=== PATIENT | female | born 1990 | race Caucasian/White ===

== ENCOUNTER 2018-07-28 09:26 | Emergency (ER) | payer OTHER ==
[2018-07-28 09:46] VITALS: BP 118/69; PULSE 96; TEMP 98.7; BMI 20.9
--- NOTE | 2018-07-28 10:14 | PDOC ---
History of Present Illness - General Chief Complaint: Laceration Stated Complaint: LACERATION TO CHIN Time Seen by Provider: 07/28/18 09:36 History Source: Patient Exam Limitations: No Limitations - History of Present Illness Initial Comments: 07/28/18 10:09 Healthy 28-year-old female presents with chin laceration status post trip and fall. Patient awoke from sleep, was walking to the kitchen when she tripped over a stool and fell onto vinyl tiles, striking her chin. No other injury, denies any head injury or neck pain, denies any loss of consciousness or lightheadedness, no cardiopulmonary complaints. Presents specifically for laceration repair. Last tetanus within the past 5 years. Past History - Past Medical History Allergies/Adverse Reactions: Allergies Allergy/AdvReac Type Severity Reaction Status Date / Time No Known Allergies Allergy Unverified 07/28/18 09:29 Home Medications: Ambulatory Orders NK [No Known Home Medication] 07/28/18 COPD: No Other medical history: DENIES - Suicide/Smoking/Psychosocial Hx Smoking History: Current every day smoker Have you smoked in the past 12 months: Yes Number of Cigarettes Smoked Daily: 15 Information on smoking cessation initiated: Yes 'Breaking Loose' booklet given: 07/28/18 Hx Alcohol Use: No Drug/Substance Use Hx: Yes (MARIJUANA) Substance Use Type: Marijuana Review of Systems - Review of Systems Constitutional: No: Chills, Fever HEENTM: No: Recent change in vision Respiratory: No: Shortness of Breath Cardiac (ROS): No: Chest Pain, Lightheadedness, Syncope ABD/GI: No: Nausea, Vomiting Musculoskeletal: No: Joint Pain, Muscle Pain Integumentary: Yes: See HPI Neurological: No: Headache, Weakness, Ataxia, Dizziness All Other Systems: Reviewed and Negative *Physical Exam - Vital Signs Last Vital Signs Temp Pulse Resp BP Pulse Ox 98.7 F 96 H 16 118/69 100 07/28/18 09:29 07/28/18 09:29 07/28/18 09:29 07/28/18 09:29 07/28/18 09:29 - Physical Exam Comments: 07/28/18 10:10 General: Patient is alert and in no acute distress. Speech is clear and appropriate. Head: Atraumatic and nontender. HEENT: Pupils are equal round and reactive to light, extraocular movements are intact. No facial deformity/tenderness, no septal hematoma. The oropharynx is clear, no tongue lac or loose dentition. Neck: The trachea is midline, there is no stridor. There is no midline cervical spine tenderness, full range of motion of neck. Chest: Nontender, no ecchymosis or abrasions. Heart: S1-S2, regular rate and rhythm. No murmurs. Lungs: Clear to auscultation bilaterally. Symmetric chest rise. Abdomen: Soft/nontender/nondistended. Bowel sounds are normal. There is no abdominal or flank ecchymosis. Back/Pelvis: There is no midline spine tenderness or step-off. Pelvis is stable and nontender. Extremities: There is no extremity deformity or joint swelling. No focal bony tenderness throughout. 2+ distal pulses throughout. Neuro: Alert and oriented x3. Cranial nerves II through XII are intact. 5 out of 5 motor strength x4 extremities. [id number] is intact. No pronator drift. Gait is stable. Skin: 4cm horizontal laceration under chin, through dermis but no muscle involvement. no foreign body, no active bleeding. No other abrasions/hematomas. Psych: Affect is appropriate. Medical Decision Making - Medical Decision Making 07/28/18 10:13 28-year-old female with mechanical trip and fall and chin laceration as isolated injury. No evidence of underlying bony injury, no evidence of cardiopulmonary process or syncope. Tetanus is already up-to-date LACERATION REPAIR: performed by MS and directly supervised by me: The skin was prepped with Saline. 2% lidocaine was injected subcutaneously for local anesthesia. Normal saline lavage, high pressure, high volume was performed. 4.0 Nylon, simple interrupted suture x1 was placed, 5.0 nylon x4. Bacitracin and dry sterile dressing were applied. Patient was advised regarding signs and symptoms of infection that would indicate a need to see the doctor immediately, as well as instructions for suture removal. Understands return criteria, agrees with discharge plan *DC/Admit/Observation/Transfer Diagnosis at time of Disposition: Laceration - Discharge Dispostion Disposition: HOME Condition at time of disposition: Stable - Referrals Referrals: [facility] [place] [Provider Group] - Patient Instructions Printed Discharge Instructions: DI for Laceration Repair Additional Instructions: Activity as tolerated. Stay hydrated. Tylenol 1000 mg every 8 hours and/or ibuprofen 600 mg every 8 hours as needed for pain. Maintain current dressing for 48 hours, then bacitracin dressing changes twice daily. Avoid soaking or scrubbing. Follow up with your primary doctor or return to the emergency department in 5-6 days for suture removal. Continue your medications as previously prescribed by your physician. You should follow up with your primary doctor as needed regarding today's emergency department visit. Return to the emergency department sooner for any new or concerning symptoms, particularly redness or swelling, pus or bleeding, pain or fevers or chills. - Post Discharge Activity
== END 2018-07-28 10:26 | disposition home or self-care (01) ==
LOC: FER 09:26
PROC: 0HQ1XZZ Repair Face Skin, External Approach (ICD-10-PCS; principal; 2018-07-28)
DX: S01.81XA Laceration without foreign body of other part of head, initial encounter (principal); W01.198A Fall on same level from slipping, tripping and stumbling with subsequent striking against other object, initial encounter; Y93.01 Activity, walking, marching and hiking; Y92.008 Other place in unspecified non-institutional (private) residence as the place of occurrence of the external cause; F17.210 Nicotine dependence, cigarettes, uncomplicated
CPT/HCPCS: 12013; 99282-25

== ENCOUNTER 2018-08-02 14:38 | Emergency (ER) | payer OTHER ==
--- NOTE | 2018-08-02 14:40 | PDOC ---
History of Present Illness - General Chief Complaint: Suture/Staple Removal(Here) Stated Complaint: SUTURE REMOVAL Time Seen by Provider: 08/02/18 14:39 - History of Present Illness Initial Comments: 08/02/18 14:50 The patient is a 28 year old female with no significant PMH who presents for evaluation of suture removal. The patient reports that she fell 6 days ago and sustained a laceration to her chin that was repaired in the ED with 5 sutures. Since then, she reports that the wound has been healing well and she has been keeping it clean. She otherwise denies fevers, chills, redness, pus drainage, SOB, chest pain, nausea, vomiting, abdominal pain, or changes with urination or bowel movements. Past History - Past Medical History Allergies/Adverse Reactions: Allergies Allergy/AdvReac Type Severity Reaction Status Date / Time No Known Allergies Allergy Verified 08/02/18 14:39 Home Medications: Ambulatory Orders NK [No Known Home Medication] 07/28/18 COPD: No - Suicide/Smoking/Psychosocial Hx Smoking History: Current every day smoker Have you smoked in the past 12 months: Yes Number of Cigarettes Smoked Daily: 15 'Breaking Loose' booklet given: 07/28/18 Hx Alcohol Use: No Drug/Substance Use Hx: Yes (MARIJUANA) Substance Use Type: Marijuana Review of Systems - Review of Systems Comments:: 08/02/18 14:52 Constitutional: No fevers, chills, fatigue, malaise HEENT: No Rhinorrhea, nasal congestion, visual changes Cardiovascular: No chest pain, syncope, palpitations, lightheadedness Respiratory: No Cough, SOB, Hemoptysis, Gastrointestinal: No Abdominal pain, Nausea, Vomiting, Constipation, Diarrhea, Melena Genitourinary: No Dysuria, Frequency, Urgency, Hesitancy, Hematuria, Flank pain Musculoskeletal: No Myalgia, arthralgia Skin: No rashes, itching, bruising, pallor Neurologic: No Headache, Dizziness, Numbness, Weakness, or Tingling Psychiatric: No Hallucinations. No SI or HI *Physical Exam - Physical Exam Comments: 08/02/18 14:52 General Appearance: Nourished. No Apparent Distress HEENT: Well healing 1 cm laceration to the chin with [address] No Pharyngeal Erythema, Tonsillar Exudate, Tonsillar Erythema Neck: No Cervical Lymphadenopathy Respiratory/Chest: Lungs Clear, Normal Breath Sounds. No Crackles, Rales, Rhonchi, Wheezing Cardiovascular: Regular Rhythm, Regular Rate. No Murmur, Gallops, Rubs Gastrointestinal/Abdominal: Normal Bowel Sounds, Soft. No Guarding, Rebound, Tenderness Musculoskeletal: No CVA Tenderness Extremity: Normal Capillary Refill Integumentary: Normal Color, Dry, Warm Neurologic: Fully Oriented, Alert, Normal Mood/Affect, Normal Response, Medical Decision Making - Medical Decision Making 08/02/18 14:53 The patient is a 28 year old female with no significant PMH who presents for evaluation of suture removal. The patient's wound appears to be healing well on exam. We removed the 5 sutures from the wound and it appeared to be well healing. We are comfortable discharging the patient home and have provided proper wound care instructions. We discussed the plan and return precautions with the patient who voiced understanding and is agreeable with the plan. *DC/Admit/Observation/Transfer Diagnosis at time of Disposition: Visit for suture removal - Discharge Dispostion Disposition: HOME Condition at time of disposition: Stable - Referrals - Patient Instructions Printed Discharge Instructions: DI for Suture Removal Additional Instructions: Please return to the ER if you experience concerning or worsening symptoms including worsening difficulty breathing, weakness, or chest pain, fevers, pus drainage. Please continue to use bacitracin and keep the wound clean. Please keep the wound out of sunlight to help prevent scarring. - Post Discharge Activity
[2018-08-02 14:44] VITALS: BP 118/80; PULSE 76; TEMP 98; BMI 20.1
--- NOTE | 2018-08-02 14:46 | PDOC ---
Attending Attestation - Resident Resident Name: Blue Ahn - ED Attending Attestation I have performed the following: I have examined & evaluated the patient, The case was reviewed & discussed with the resident, I agree w/resident's findings & plan - HPI HPI: 08/02/18 14:44 28 y/o female with laceration to chin that occurred on Friday, here to have sutures removed. No complaints at this time. - Physicial Exam PE: 08/02/18 14:45 VSS HEENT: sutures intact to chin, no redness swelling tenderness or drainage noted Heart RRR w/o murmur Lungs CTA b/l, no wheezes - Medical Decision Making 08/02/18 14:[address] Ahn Keep clean Return to ER as needed Agree with plan and assessment of Dr. Ahn Final Dx: removal of sutures
== END 2018-08-02 15:05 | disposition home or self-care (01) ==
LOC: FER 14:38
DX: Z48.02 Encounter for removal of sutures (principal)
CPT/HCPCS: 99281-25

== ENCOUNTER 2022-04-24 12:02 | Emergency (ER) | payer OTHER ==
[2022-04-24 12:15] VITALS: BMI 19.3
[2022-04-24] MEDS ORDERED: FAMOTIDINE 20 MG/50 ML IVPB 20 MG/50 ML MG IVPB ONE ×2 (13:29→13:44)
[2022-04-24] MEDS ORDERED: ACETAMINOPHEN 1000 MG/100 ML BAG IVPB ONE (13:29)
[2022-04-24] MEDS ORDERED: MAG HYDROX/AL HYDROX/SIMETH -MYLANTA- ORAL SUSPENSION PO ONE (13:29)
[2022-04-24] MEDS ORDERED: MAG HYDROX/AL HYDROX/SIMETH 30 ML UNIT-DOSE CUP ONE (13:44)
[2022-04-24] MEDS ORDERED: ACETAMINOPHEN INJECTION 100 ML IVPB ONE (13:47)
[2022-04-24] MEDS ORDERED: METOCLOPRAMIDE HCL INJECTION 10 MG/2 ML VIAL IVPB ONE (13:54)
[2022-04-24] MEDS ORDERED: METOCLOPRAMIDE HCL INJECTION 10 MG/2 ML VIAL ONE (14:06)
[2022-04-24 14:54] LABS: CHLORIDE 99 mmol/L (98-107); SODIUM 134 mmol/L (136-145)
[2022-04-24 14:56] LABS: ALBUMIN 3.8 g/dl (3.4-5.0); BLOOD UREA NITROGEN 7.2 mg/dL (7-18); CALCIUM 9.2 mg/dL (8.5-10.1); CO2 28 mmol/L (21-32); GLUCOSE,RANDOM 80 mg/dL (74-106)
[2022-04-24 14:57] LABS: BASO % 0.3 % (0-2.0); EOS % 0.4 % (0-4.5); HEMATOCRIT 43.3 % (32.4-45.2); HEMOGLOBIN 14.7 GM/dL (10.7-15.3); INR 1.03 (0.83-1.09); LYMPH % 15.6 % (8-40); MCH 29.9 pg (25.7-33.7); MCHC 33.9 g/dl (32.0-36.0); MEAN CELL VOLUME 88.3 fl (80-96); MEAN PLT VOLUME 9.8 fl (7.5-11.1); NEUT % 66.7 % (42.8-82.8); PLATELET COUNT 178 10^3/uL (134-434); PROTHROMBIN TIME (PATIENT) 11.9 SEC (9.7-13.0); RDW 14.2 % (11.6-15.6); WHITE BLOOD COUNT 6.5 K/mm3 (4.0-10.0)
[2022-04-24 14:59] LABS: ACTIVATED PTT 29.5 SECONDS (25.2-36.5); CREATININE 0.9 mg/dL (0.55-1.3); SGOT/AST 68 U/L (15-37)
[2022-04-24 15:01] LABS: TOT PROT 8.2 g/dl (6.4-8.2)
[2022-04-24 15:02] LABS: ALK PHOS 89 U/L (45-117)
[2022-04-24 15:14] LABS: ANION GAP 6 MMOL/L (8-16); SGPT/ALT 40 U/L (13-61)
[2022-04-24] MEDS ORDERED: KETOROLAC TROMETHAMINE 15 MG/ML VIAL IVPUSH ONE (15:23)
[2022-04-24] MEDS ORDERED: KETOROLAC TROMETHAMINE 15 MG/ML VIAL ONE (15:48)
[2022-04-24 16:49] LABS: BLOOD UREA NITROGEN 7.4 mg/dL (7-18); CALCIUM 8.8 mg/dL (8.5-10.1)
[2022-04-24] MEDS ORDERED: POTASSIUM CHLORIDE TABS 20 MEQ TABLET.ER (FP) PO ONE ×2 (16:49→16:56)
[2022-04-24 16:53] LABS: CREATININE 0.7 mg/dL (0.55-1.3)
[2022-04-24 17:09] VITALS: BP 108/56; PULSE 104; RESP 18; TEMP 98.8
== END 2022-04-24 17:05 | disposition home or self-care (01) ==
LOC: JER 12:02
PROC: 3E0333Z Introduction of Anti-inflammatory into Peripheral Vein, Percutaneous Approach (ICD-10-PCS; principal; 2022-04-24)
PROC: 3E033GC Introduction of Other Therapeutic Substance into Peripheral Vein, Percutaneous Approach (ICD-10-PCS; 2022-04-24)
PROC: 3E0337Z Introduction of Electrolytic and Water Balance Substance into Peripheral Vein, Percutaneous Approach (ICD-10-PCS; 2022-04-24)
PROC: 3E033GC Introduction of Other Therapeutic Substance into Peripheral Vein, Percutaneous Approach (ICD-10-PCS; 2022-04-24)
DX: R51.9 Headache, unspecified (principal); R07.9 Chest pain, unspecified; R55 Syncope and collapse
CPT/HCPCS: 36415; 70450-TC; 71045-TC-FY; 80048; 80053; 82550; 82553; 84484; 84703; 85025; 85610; 85730; 93005; 93010; 99285-25

== ENCOUNTER 2022-07-19 22:40 | Emergency (ER) | payer OTHER ==
[2022-07-19 22:49] VITALS: BP 125/79; PULSE 89; RESP 16; BMI 19.2
[2022-07-19] MEDS ORDERED: ONDANSETRON 4 MG/2 ML VIAL IVPUSH ONE (22:53)
[2022-07-19] MEDS ORDERED: ONDANSETRON 4 MG/2 ML VIAL ONE (22:56)
== END 2022-07-20 04:11 | disposition home or self-care (01) ==
LOC: JER 22:40
PROC: 3E033NZ Introduction of Analgesics, Hypnotics, Sedatives into Peripheral Vein, Percutaneous Approach (ICD-10-PCS; principal; 2022-07-19)
DX: T40.2X4A Poisoning by other opioids, undetermined, initial encounter (principal)
CPT/HCPCS: 0241U-QW; 71045-TC-FY; 82962; 99284-25

== ENCOUNTER 2025-03-08 20:25 | Emergency (ER) | payer OTHER ==
[2025-03-08 20:36] VITALS: BP 122/67; PULSE 80; RESP 18; TEMP 98.3; BMI 17.7
[2025-03-08] MEDS: LACTATED RINGERS SOLUTION 1000 ML INFUS.BAG IV ONE (21:55)
== END 2025-03-09 00:22 | disposition home or self-care (01) ==
LOC: JER 20:25
DX: E86.0 Dehydration (principal); G47.00 Insomnia, unspecified; R06.02 Shortness of breath; R44.0 Auditory hallucinations; R63.0 Anorexia; R53.83 Other fatigue
CPT/HCPCS: 99283-25